=== PATIENT | female | born 1980 | race Caucasian/White ===

== ENCOUNTER 2016-12-11 14:19 | Emergency (ER) | payer MEDICAID, OTHER ==
[~2016-12-11] VITALS: Ht 157.5 cm; Wt 61.0 kg
[2016-12-11] MEDS ORDERED: IBUP-1510 PO (15:01)
[2016-12-11] MEDS ORDERED: OXYCODONE HCL/ACETAMINOPHEN 5/325MG TABLET PO ONE (18:30)
[2016-12-11] MEDS ORDERED: KETOROLAC 60MG/2ML VIAL IM ONE (18:30)
[2016-12-11 19:17] VITALS: BP 131/64
== END 2016-12-11 19:19 | disposition home or self-care (01) ==
LOC: ER 18:52
DX: M54.5 Low back pain (principal); M32.9 Systemic lupus erythematosus, unspecified
CPT/HCPCS: 96372; 99283; J1885; Z7610